=== PATIENT | male | born 2000 | race African-American/Black ===

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

== ENCOUNTER 2022-10-13 15:09 | Emergency (ER) | payer OTHER ==
[~2022-10-13] VITALS: Ht 177.8 cm; Wt 63.6 kg
[2022-10-13 15:12] VITALS: BP 118/68; PULSE 85; RESP 16; TEMP 98.5
[2022-10-13] MEDS ORDERED: ACET-66 PO (16:42)
== END 2022-10-14 01:22 | disposition home or self-care (01) ==
LOC: EMS 15:11
DX: S02.66XA Fracture of symphysis of mandible, initial encounter for closed fracture (principal); F12.90 Cannabis use, unspecified, uncomplicated; Z98.890 Other specified postprocedural states; W50.0XXA Accidental hit or strike by another person, initial encounter; Y93.71 Activity, boxing; Y92.89 Other specified places as the place of occurrence of the external cause; Y99.8 Other external cause status
CPT/HCPCS: 70110; 99283